=== PATIENT | female | born 1985 | race Caucasian/White ===

== ENCOUNTER → 2018-06-19 14:26 | Outpatient (CLI) | payer OTHER, SELFPAY ==
--- NOTE | 2018-06-19 | DI.MRI.S_ITS ---
PROCEDURE: MR PELVIS WO/W CON INDICATIONS: LEIOMYOMA OF UTERUS TECHNIQUE: Coronal HASTE, sagittal breath-hold T2 FSE; axial T1 FSE with and without fat saturation through the pelvis. Optional long- and short-axis uterine nonbreath-hold T2 FSE through the uterus. Sagittal or axial dynamic VIBE during administration of contrast. Post-contrast axial or coronal VIBE/2-D FLASH with fat saturation from the iliac crests to the symphysis. Optional diffusion weighted imaging and ADC may be performed. COMPARISON: [facility], CT, IVP (ABD & PEL WWO CONTRAST), 04/20/2015, 9:45. FINDINGS: Image quality: Excellent Uterus: There is a bicornuate uterus. The endometrium is thickness is within physiologic limits in a premenopausal female. The junctional zone is normal where visualized. There are multiple uterine fibroids includin. A 6.0 x 6.5 x 5.5 cm left anterior fundal fibroid 2. A right anterior 6.4 x 8.7 x 4.7 cm fundal fibroid. 3. A left inferior 3.0 x 2.7 x 3.6 cm fibroid. All 3 fibroids demonstrate heterogeneous enhancement. Adnexa: The left ovary is normal size with small follicular cysts. The right ovary is not definitely visualized. Urinary system: Bladder wall is normal in thickness. Distal ureters are non distended. Urethra appears normal in morphology. Nodes and vessels: No pelvic or inguinal adenopathy by size criteria. Iliac vessels are normal in size. Bowel and peritoneum: No pathologic free pelvic fluid. Inferior colon and small bowel loops are normal in caliber. Soft tissues: No inguinal hernias. No findings of pelvic floor incompetence in the absence of provocation. Bones: Marrow demonstrates normal overall signal. IMPRESSION: 1. Large uterine fibroids as described above. Please note, based on imaging there is no differentiation between leiomyoma and leiomyosarcoma. Please correlate with clinical history. If there is rapid growth of uterine fibroids, leiomyosarcoma should be considered in the differential diagnosis. 2. Bicornuate uterus. Dictated by: lEeni Santos M.D. on 06/19/2018 at 16:35 Approved by: Eleni Santos M.D. on 06/19/2018 at 16:49
== END ==
PROVIDERS: PCP Family Medicine; Visit Provider Family Medicine
DX: D25.9 Leiomyoma of uterus, unspecified (principal); Q51.3 Bicornate uterus
CPT/HCPCS: 72197